=== PATIENT | male | born 1990 | race Caucasian/White ===

== ENCOUNTER 2019-04-10 08:11 | Day surgery (SDC) | payer OTHER ==
[2019-04-10] MEDS ORDERED: LACTATED RINGERS 1,000 ML IV ONE ×2 (08:20→10:29)
[2019-04-10] MEDS ORDERED: fentaNYL 100 MCG/2 ML VIAL IVP ONE (09:54)
[2019-04-10] MEDS ORDERED: MIDAZOLAM 2 MG/2 ML VIAL IVP ONE (09:54)
[2019-04-10] MEDS ORDERED: fentaNYL 250 MCG/5 ML VIAL IVP ONE (09:54)
[2019-04-10 10:58] VITALS: BP 113/71
== END 2019-04-10 08:12 | disposition home or self-care (01) ==
LOC: SDS 08:11
PROVIDERS: ATTEND Surgery
PROC: 0DBN8ZZ Excision of Sigmoid Colon, Via Natural or Artificial Opening Endoscopic (ICD-10-PCS; principal; 2019-04-10 09:30)
DX: K63.5 Polyp of colon (principal); K64.8 Other hemorrhoids; F17.210 Nicotine dependence, cigarettes, uncomplicated; M22.2X1 Patellofemoral disorders, right knee
CPT/HCPCS: 45385; J3010; J7120